=== PATIENT | female | born 1995 | race Caucasian/White ===

== ENCOUNTER 2018-05-10 18:50 | Outpatient (CLI) | payer OTHER | END 2018-05-10 20:25 | disposition home or self-care (01) | LOC: OBT 18:50 → L-D 18:51 → OBT 20:25 | DX: O34.219 Maternal care for unspecified type scar from previous cesarean delivery (principal); Z3A.40 40 weeks gestation of pregnancy | CPT/HCPCS: 76818 ==

== ENCOUNTER 2018-05-11 05:45 | Inpatient (IN) | payer OTHER ==
[2018-05-11 06:26] LABS: ADD MAN DIFF? NO
[2018-05-11] MEDS ORDERED: MISOPROSTOL 200 MCG TAB PR ×2 (06:30→15:00)
[2018-05-11] MEDS ORDERED: OXYTOCIN 30 UNITS/LR 500 ML IV ×2 (06:30→15:00)
[2018-05-11] MEDS ORDERED: METHYLERGONOVINE 0.2 MG INJ IM ×2 (06:30→15:00)
[2018-05-11] MEDS ORDERED: CARBOPROST 250 MCG INJ IM ×2 (06:30→15:00)
[2018-05-11 06:40] LABS: WHITE BLOOD COUNT 7.7 10^3/ul (4.8-10.8)
[2018-05-11 06:40] LABS: BASOPHILS % 0.3 % (0.0-2.0); EOSINOPHILS # 0.1 10^3/ul (0.0-0.5); EOSINOPHILS % 0.9 % (0.0-7.0); HEMATOCRIT 34.3 % (37.0-47.0); HEMOGLOBIN 11.5 g/dl (12.0-16.0); LYMPHOCYTES # 1.6 10^3/ul (0.8-2.9); LYMPHOCYTES % 20.8 % (15.0-51.0); MEAN CORPUSCULAR HEMOGLOBIN 29.7 pg (29.0-33.0); MEAN CORPUSCULAR HGB CONC 33.5 g/dl (32.0-37.0); MEAN CORPUSCULAR VOLUME 88.6 fl (82.0-101.0); MEAN PLATELET VOLUME 11.3 fl (7.4-10.4); MONOCYTE # 0.7 10^3/ul (0.3-0.9); MONOCYTES % 8.7 % (0.0-11.0); NEUTROPHIL # 5.3 10^3/ul (1.6-7.5); NEUTROPHILS % 68.9 % (39.0-77.0); PLATELET COUNT 188 10^3/UL (140-415); RED BLOOD COUNT 3.87 10^6/ul (4.20-5.40); RED CELL DISTRIBUTION WIDTH 14.6 % (11.5-14.5)
[2018-05-11] MEDS: LACTATED RINGER'S 1,000 ML IV ×2 (06:50→22:03)
[2018-05-11 06:55] LABS: INR 0.96; PROTIME 12.9 Sec (11.9-14.9)
[2018-05-11 06:56] LABS: PARTIAL THROMBOPLASTIN TIME 27.8 Sec (25.0-35.0)
[2018-05-11] MEDS ORDERED: OXYTOCIN 30 UNITS/LR 500 ML BAG IV (07:00)
[2018-05-11 07:24] LABS: HEPATITIS B SURFACE ANTIGEN NEGATIVE (NEGATIVE)
[2018-05-11] MEDS ORDERED: ONDANSETRON 4 MG INJ IV (07:32)
[2018-05-11] MEDS ORDERED: CITRIC ACID/SODIUM CITRATE 15 ML CUP PO (08:00)
[2018-05-11 08:28] LABS: HIV 1&2 ANTIBODY NEGATIVE (NEGATIVE)
[2018-05-11] MEDS: CITRIC ACID/SODIUM CITRATE 15 ML CUP PO (12:40)
[2018-05-11] MEDS: ONDANSETRON 4 MG INJ IV ×2 (12:40→21:00)
[2018-05-11] MEDS ORDERED: PHENYLephrine (100 MCG/ML) 5ML SYG (12:48)
[2018-05-11] MEDS ORDERED: OXYTOCIN 10 UNIT INJ (12:48)
[2018-05-11] MEDS ORDERED: morphine SULFATE/PF (10 MG/10 ML) INJ (12:48)
[2018-05-11] MEDS ORDERED: DEXAMETHASONE 4 MG/ML 1 ML INJ (13:21)
[2018-05-11] MEDS ORDERED: KETOROLAC 30 MG INJ (13:21)
[2018-05-11] MEDS ORDERED: METOCLOPRAMIDE 10 MG INJ (13:21)
[2018-05-11] MEDS ORDERED: BUPIVACAINE 0.75%/DEXT (SPINAL) 2 ML INJ (13:21)
[2018-05-11] MEDS ORDERED: NALBUPHINE HCL (10 MG/1 ML) INJ IV (13:30)
[2018-05-11] MEDS ORDERED: ACETAMINOPHEN 500 MG TAB PO (13:30)
[2018-05-11] MEDS ORDERED: morphine 2 MG INJ IV ×2 (13:30)
[2018-05-11] MEDS ORDERED: HYDROmorphONE 0.5 MG/0.5 ML SYG IV ×2 (13:30)
[2018-05-11] MEDS ORDERED: DIPHENHYDRAMINE 50 MG INJ IV (13:30)
[2018-05-11] MEDS ORDERED: NALOXONE (0.4 MG/ML) INJ IV (13:30)
[2018-05-11] MEDS ORDERED: HYDROCODONE/APAP (5/325) TAB PO ×3 (13:30→15:00)
[2018-05-11] MEDS ORDERED: MEPERIDINE /PF (100 MG/2 ML) AMPULE (13:55)
[2018-05-11] MEDS: CEFAZOLIN 2 GM/50 ML (PMX) 50 ML IV (14:29)
[2018-05-11] MEDS: DEXTROSE 5%-LR 1,000 ML IV ×2 (14:42→22:42)
[2018-05-11] MEDS ORDERED: METHYLERGONOVINE 0.2 MG TAB PO (15:00)
[2018-05-11] MEDS: OXYTOCIN 30 UNITS/LR 500 ML IV (16:13)
[2018-05-11] MEDS: SENNA/DOCUSATE NA (8.6MG/50MG) TAB PO (21:00)
[2018-05-11] MEDS: KETOROLAC 30 MG INJ IV (21:00)
[2018-05-11] MEDS: IBUPROFEN 800 MG TAB PO (22:00)
[2018-05-11 22:24] LABS: RAPID PLASMA REAGIN NONREACTIVE (NR)
[2018-05-12] MEDS: LANOLIN 7 GM TUBE TOP (01:45)
[2018-05-12] MEDS: LACTATED RINGER'S 1,000 ML IV ×4 (01:45→22:03)
[2018-05-12] MEDS: KETOROLAC 30 MG INJ IV ×2 (03:15→11:12)
[2018-05-12] MEDS: IBUPROFEN 800 MG TAB PO ×3 (06:00→21:33)
[2018-05-12 07:51] LABS: ADD MAN DIFF? NO
[2018-05-12 07:55] LABS: WHITE BLOOD COUNT 10.9 10^3/ul (4.8-10.8)
[2018-05-12 07:55] LABS: BASOPHILS % 0.2 % (0.0-2.0); EOSINOPHILS # 0.1 10^3/ul (0.0-0.5); EOSINOPHILS % 0.5 % (0.0-7.0); HEMATOCRIT 31.2 % (37.0-47.0); HEMOGLOBIN 10.2 g/dl (12.0-16.0); LYMPHOCYTES % 18.6 % (15.0-51.0); MEAN CORPUSCULAR HEMOGLOBIN 29.1 pg (29.0-33.0); MEAN CORPUSCULAR HGB CONC 32.7 g/dl (32.0-37.0); MEAN CORPUSCULAR VOLUME 88.9 fl (82.0-101.0); MONOCYTES % 8.9 % (0.0-11.0); NEUTROPHIL # 7.8 10^3/ul (1.6-7.5); NEUTROPHILS % 71.4 % (39.0-77.0); PLATELET COUNT 179 10^3/UL (140-415); RED BLOOD COUNT 3.51 10^6/ul (4.20-5.40); RED CELL DISTRIBUTION WIDTH 14.3 % (11.5-14.5)
[2018-05-12] MEDS: HYDROCODONE/APAP (5/325) TAB PO ×3 (08:00→21:46)
[2018-05-12] MEDS: SENNA/DOCUSATE NA (8.6MG/50MG) TAB PO ×2 (11:12→21:32)
[2018-05-12] MEDS ORDERED: HYDROCODONE/APAP (5/325) TAB PO ×2 (12:00→21:30)
[2018-05-12] MEDS: FERROUS GLUCONATE (EC) 325 MG TAB PO (21:32)
[2018-05-13] MEDS: HYDROCODONE/APAP (5/325) TAB PO ×3 (05:45→22:13)
[2018-05-13] MEDS: IBUPROFEN 800 MG TAB PO ×3 (05:45→22:12)
[2018-05-13] MEDS: LACTATED RINGER'S 1,000 ML IV ×3 (05:46→22:03)
[2018-05-13] MEDS: SENNA/DOCUSATE NA (8.6MG/50MG) TAB PO ×2 (09:00→21:14)
[2018-05-13] MEDS: FERROUS GLUCONATE (EC) 325 MG TAB PO (09:35)
[2018-05-14] MEDS: IBUPROFEN 800 MG TAB PO ×2 (05:45→13:41)
[2018-05-14] MEDS: HYDROCODONE/APAP (5/325) TAB PO ×2 (05:47→13:41)
[2018-05-14] MEDS: LACTATED RINGER'S 1,000 ML IV (06:03)
[2018-05-14] MEDS ORDERED: MEASLES,MUMPS,RUBELLA VACCINE INJ SC* (09:00)
[2018-05-14] MEDS: SENNA/DOCUSATE NA (8.6MG/50MG) TAB PO (10:05)
[2018-05-14] MEDS: FERROUS GLUCONATE (EC) 325 MG TAB PO (10:05)
[2018-05-14] MEDS: DIPHTH/TET/ACEL PERTUSS (ADULT) 0.5 ML VIAL IM* (11:20)
== END 2018-05-14 14:28 | disposition home or self-care (01) | DRG 766 ==
LOC: L-D 05:45 → PP1 23:20
PROVIDERS: Obstetrics & Gynecology
PROC: 10D00Z1 Extraction of Products of Conception, Low, Open Approach (ICD-10-PCS; principal; 2018-05-11)
PROC: 3E0234Z Introduction of Serum, Toxoid and Vaccine into Muscle, Percutaneous Approach (ICD-10-PCS; 2018-05-14)
DX: O34.219 Maternal care for unspecified type scar from previous cesarean delivery (principal); O99.824 Streptococcus B carrier state complicating childbirth; Z37.0 Single live birth; Z3A.39 39 weeks gestation of pregnancy; Z23 Encounter for immunization
CPT/HCPCS: 85025; 85610; 85730; 86592; 86703; 86850; 86900; 86901; 87340; 90715; 99464

== ENCOUNTER 2018-06-16 21:30 | Emergency (ER) | payer OTHER | END 2018-06-16 21:59 | disposition home or self-care (01) | LOC: FTE 21:30 | DX: O86.00 Infection of obstetric surgical wound, unspecified (principal); B96.89 Other specified bacterial agents as the cause of diseases classified elsewhere; Z48.01 Encounter for change or removal of surgical wound dressing | CPT/HCPCS: 99283; Z7502 ==

== ENCOUNTER 2018-07-16 16:56 | Emergency (ER) | payer OTHER | END 2018-07-16 17:25 | disposition home or self-care (01) | LOC: FTE 16:56 | DX: B37.2 Candidiasis of skin and nail (principal) | CPT/HCPCS: 82962; 99283 ==